=== PATIENT | female | born 1935 | race Caucasian/White ===

== ENCOUNTER 2018-12-23 09:58 | Day surgery (SDC) | payer MEDICARE ==
[2018-12-23] VITALS (16 sets, daily range): BP systolic 104–140; BP diastolic 49–93
[~2018-12-23] VITALS: Ht 162.6 cm; Wt 94.2 kg
[2018-12-23] MEDS ORDERED: nitroGLYCERIN 0.4mg SUBLingual tab SL PRN ×2 (10:30→14:10)
[2018-12-23] MEDS ORDERED: normal saline 1,000 ML IV SCH (10:30)
[2018-12-23] MEDS ORDERED: LORazepam 0.5 MG tablet PO PRN (10:30)
[2018-12-23] MEDS ORDERED: diphenhydrAMINE 25mg capsule PO PRN (10:30)
[2018-12-23] MEDS ORDERED: LOSA25TA96 PO (10:33)
[2018-12-23] MEDS ORDERED: fentaNYL/PF 50MCG/1 ML 2ML syringe ONE (12:00)
[2018-12-23] MEDS ORDERED: iohexol 350 MG/ML 50ML vial IV ONE ×2 (12:01→12:51)
[2018-12-23] MEDS ORDERED: iohexol 350MG/ML 100ml bottle IV ONE (12:01)
[2018-12-23] MEDS ORDERED: midazolam 2 mg/2 ml injection ONE (12:01)
[2018-12-23] MEDS ORDERED: LIDOcaine 1% (10mg/ml)w/preservative injection 20ml MDV ONE (12:01)
[2018-12-23 13:21] LABS: ISTAT HGB ART 12.2 g/dl (12.0-16.0); ISTAT Hct ART 36 %PCV (35-48); ISTAT O2 SATURATION ARTERIAL 93 % (95-98); ISTAT SOURCE ART
[2018-12-23] MEDS ORDERED: furosemide 40mg/4ml inj ONE (13:24)
[2018-12-23] MEDS ORDERED: ondansetron/PF 4mg/2ml inj IV PRN (14:05)
[2018-12-23] MEDS ORDERED: HYDROcodone/acetaminophen 5mg/325mg tablet PO PRN (14:05)
[2018-12-23] MEDS ORDERED: OXAZEpam 15mg capsule PO PRN (14:10)
[2018-12-23] MEDS ORDERED: HYDROcodone/acetaminophen 10/325mg tab PO PRN (14:10)
[2018-12-23] MEDS ORDERED: proCHLORperazine 10 MG/2 ml inj IV PRN (14:10)
--- NOTE | 2018-12-23 17:30 | NUR ---
REC'D REPORT FROM KOFFI WANG REGARDING PT STATUS-PT RESTING COMFORTABLY AT THIS TIME ANS STATES SHE DOES NOT NEED ANYTHING-CALL BRISA W/IN BEATRICE Addendum: 12/23/18 at 1759 by Billie Marcus RN Amended: Links added.
== END 2018-12-23 20:00 | disposition home or self-care (01) ==
LOC: SSTAY O 09:58
PROVIDERS: ATTEND Internal Medicine Cardiovascular Disease
DX: R07.9 Chest pain, unspecified (principal); I25.10 Atherosclerotic heart disease of native coronary artery without angina pectoris; I08.0 Rheumatic disorders of both mitral and aortic valves; J44.9 Chronic obstructive pulmonary disease, unspecified; Z87.891 Personal history of nicotine dependence
CPT/HCPCS: 36415; 82803; 83880; 85014; 93306; 93460; 93567; C1769; J1644; J1940; J2001; J2250; J3010; J7030; Q0163; Q9967; 93005; A6258; C1760